=== PATIENT | female | born 1990 | race Caucasian/White ===

== ENCOUNTER 2019-06-04 17:38 | Emergency (ER) | payer OTHER ==
[2019-06-04 18:21] VITALS: BP 100/59
--- NOTE | 2019-06-04 18:28 | UC ---
Skin Complaint HPI - HPI Summary HPI Summary: 29-year-old female who has a history of abscesses. She has 2 abscesses under her right axilla. She had one last week but it opened and drained and has completely resolved. She denies any fever or chills. - History of Current Complaint Chief Complaint: UCSkin Time Seen by Provider: 06/04/19 18:20 Stated Complaint: RT ARMPIT SKIN CONCERN Hx Obtained From: Patient Hx Last Menstrual Period: 05/17/19 ?: No Onset/Duration: Gradual Onset Skin Exposure Onset/Duration: Days Ago Timing: Constant Onset Severity: Mild Current Severity: Moderate Pain Intensity: 8 Location: Other - Right axilla Character: Swelling, Redness, Painful Aggravating Factor(s): Touch Alleviating Factor(s): Nothing Associated Signs & Symptoms: Positive: Drainage, Tenderness - Allergy/Home Medications Allergies/Adverse Reactions: Allergies Allergy/AdvReac Type Severity Reaction Status Date / Time azithromycin AdvReac Palpitation Verified 06/04/19 18:20 s Home Medications: Home Medications Cbd Oil 1 drop PO BID 06/04/19 [History Confirmed 06/04/19] Kratom 2 teasp PO Q2HR 06/04/19 [History Confirmed 06/04/19] PMH/Surg Hx/FS Hx/Imm Hx Previously Healthy: Yes - Surgical History Surgical History: Yes Surgery Procedure, Year, and Place: - Family History Known Family History: Positive: None - Social History Alcohol Use: Rare Substance Use Type: None Smoking Status (MU): Heavy Every Day Tobacco Smoker Type: eCigarettes Amount Used/How Often: 3-4 per day Length of Time of Smoking/Using Tobacco: since age 14 Have You Smoked in the Last Year: Yes When Did the Patient Quit Smoking/Using Tobacco: VAPES Review of Systems All Other Systems Reviewed And Are Negative: Yes Skin: Positive: Other - Patient had 3 abscesses develop under right axilla one of them has opened and drained and is almost resolved the other 2 are quite swollen and painful. Is Patient Immunocompromised?: No Physical Exam Triage Information Reviewed: Yes Appearance: Well-Appearing, No Pain Distress, Well-Nourished Vital Signs: Initial Vital Signs Temp 99.7 F 06/04/19 18:13 Pulse 92 06/04/19 18:13 Resp 16 06/04/19 18:13 BP 100/59 06/04/19 18:13 Pulse Ox 99 06/04/19 18:13 Vital Signs Reviewed: Yes Neck: Positive: Supple, Nontender, No Lymphadenopathy Respiratory: Positive: Lungs clear, Normal breath sounds, No respiratory distress, No accessory muscle use Cardiovascular: Positive: RRR, No Murmur, Pulses Normal, Brisk Capillary Refill Musculoskeletal Exam: Normal Neurological Exam: Normal Psychological Exam: Normal Skin: Positive: Other - Patient has 2 abscesses in her right axilla which are red and tender on palpation, fluctuant. Course/Dx - Course Course Of Treatment: While I was preparing the lidocaine for injection into the abscesses, the patient refuses to have the procedure done to her level of anxiety. She states in the past she has been able to just allow them to develop and the drain spontaneously. I'm starting her on Bactrim DS one tab by mouth twice a day 10 days, follow-up in the emergency room for any fever, chills or worsening symptoms and follow-up with her primary care provider or [facility] if no improvement in 3 or 4 days. I tried to reassure the patient that everything would be anesthetized however she refused the procedure. - Diagnoses Provider Diagnosis: Abscess of left axilla Discharge ED - Sign-Out/Discharge Documenting (check all that apply): Patient Departure All imaging exams completed and their final reports reviewed: No Studies - Discharge Plan Condition: Fair Disposition: HOME Prescriptions: Sulfamethox/Trimethoprim DS* [Bactrim DS 800/160 TAB*] 1 tab PO BID 10 Days #20 tab Patient Education Materials: Abscess (ED) Referrals: No Primary Care Phys,NOPCP [Primary Care Provider] - [facility] [Outside] Additional Instructions: Warm moist compresses to the area 4-6 times a day for 20 minutes each time. Take the Bactrim twice a day with food. Definite follow-up in the emergency room if you develop fever or worsening symptoms. Follow-up with your primary care provider if no improvement in 3 or 4 days. - Billing Disposition and Condition Condition: FAIR Disposition: Home
[2019-06-04] MEDS ORDERED: Lidocaine 1% MPF ** 5 ML VIAL INJ ONE (18:31)
== END 2019-06-04 18:53 | disposition home or self-care (01) ==
LOC: UCCORT 17:38
DX: L02.411 Cutaneous abscess of right axilla (principal); Z53.20 Procedure and treatment not carried out because of patient's decision for unspecified reasons; Z88.2 Allergy status to sulfonamides; F17.290 Nicotine dependence, other tobacco product, uncomplicated
CPT/HCPCS: 99212; G0463

== ENCOUNTER 2019-07-17 15:44 | Emergency (ER) | payer OTHER ==
[2019-07-17 16:22] VITALS: BP 102/63
--- NOTE | 2019-07-17 17:15 | UC ---
Eye Complaint HPI - HPI Summary HPI Summary: 29-year-old female presents with onset of redness, tenderness, and mild swelling of the upper inner eyelid this morning. Denies any eye pain, eye redness, eye drainage, visual disturbances, photophobia, injury, or URI symptoms. - History of Current Complaint Chief Complaint: UCEye Stated Complaint: LEFT EYE COMPLAINT Time Seen by Provider: 07/17/19 16:36 Hx Obtained From: Patient Hx Last Menstrual Period: 07/16/19 Pain Intensity: 4 - Allergies/Home Medications Allergies/Adverse Reactions: Allergies Allergy/AdvReac Type Severity Reaction Status Date / Time azithromycin AdvReac Palpitation Verified 07/17/19 16:22 s PMH/Surg Hx/FS Hx/Imm Hx Previously Healthy: Yes Psychological History: Depression - Surgical History Surgical History: Yes Surgery Procedure, Year, and Place: - Family History Known Family History: Positive: None - Social History Occupation: Employed Full-time Lives: With Family Alcohol Use: Rare Substance Use Type: None Smoking Status (MU): Heavy Every Day Tobacco Smoker Type: eCigarettes Amount Used/How Often: 3-4 per day Length of Time of Smoking/Using Tobacco: since age 14 Have You Smoked in the Last Year: Yes When Did the Patient Quit Smoking/Using Tobacco: VAPES Review of Systems All Other Systems Reviewed And Are Negative: Yes Constitutional: Negative: Fever, Chills Eyes: Positive: Other - See HPI. Negative: Blurred Vision, Diplopia, Drainage, Eye Redness, Photophobia ENT: Negative: Sore Throat, Ear Ache, Nasal Discharge, Sinus Congestion, Sinus Pain/Tenderness Respiratory: Negative: Cough Cardiovascular: Positive: Negative Gastrointestinal: Positive: Negative Genitourinary: Positive: Negative Musculoskeletal: Positive: Negative Neurological: Positive: Negative Is Patient Immunocompromised?: No Physical Exam - Summary Physical Exam Summary: GENERAL APPEARANCE: Well developed, well nourished, alert and cooperative, and appears to be in no acute distress. EYES: External hordeolum noted to the left inner upper eyelid with mild erythema and edema. Conjunctiva clear. No drainage. PERRL, EOM intact. Vision is grossly intact. EARS: External auditory canals and tympanic membranes clear, hearing grossly intact. NOSE: No nasal discharge. THROAT: Pharynx normal No tonsilar inflammation, swelling, exudate, or lesions. Uvula midline. NECK: Neck supple, non-tender without lymphadenopathy. CARDIAC: Normal S1 and S2. No S3, S4 or murmurs. Rhythm is regular. There is no peripheral edema, cyanosis or pallor. Extremities are warm and well perfused. Capillary refill is less than 2 seconds. Peripheral pulses intact. LUNGS: Clear to auscultation without rales, rhonchi, wheezing or diminished breath sounds. ABDOMEN: Positive bowel sounds. Soft, nondistended, nontender. No guarding or rebound. No masses or hepatosplenomegally. MUSKULOSKELETAL: ROM intact to all extremities. No joint erythema or tenderness. Normal muscular development. Normal gait. SKIN: Skin normal color, texture and turgor with no lesions or eruptions. Triage Information Reviewed: Yes Vital Signs: Initial Vital Signs Temp 99.1 F 07/17/19 16:16 Pulse 82 07/17/19 16:16 Resp 16 07/17/19 16:16 BP 102/63 07/17/19 16:16 Pulse Ox 100 07/17/19 16:16 Vital Signs Reviewed: Yes Eye Complaint Course/Dx - Course Course Of Treatment: 29-year-old female presents with onset of redness, tenderness, and mild swelling of the upper inner eyelid this morning. Denies any eye pain, eye redness, eye drainage, visual disturbances, photophobia, injury, or URI symptoms. Afebrile. Vital signs stable. Patient exam was notable for external hordeolum noted to the left inner upper eyelid with mild erythema and edema. Conjunctiva clear. No drainage. PERRL, EOM intact. Vision is grossly intact. Remainder of exam was unremarkable. Recommending conservative treatment for a left upper eyelid stye including warm compresses and gentle massage as well as [id number] analgesics. She is to follow-up with ophthalmology in 5-7 days if symptoms are not improving. Anticipatory guidance and warning symptoms were reviewed with the patient. Verbalizes understanding and agrees with plan of care. - Differential Dx/Diagnosis Differential Diagnosis/HQI/PQRI: Conjunctivitis, Corneal Abrasion, Periorbital Cellulitis, Orbital Cellulitis, Other - Hordeolum Provider Diagnosis: Hordeolum externum of left upper eyelid Discharge ED - Sign-Out/Discharge Documenting (check all that apply): Patient Departure All imaging exams completed and their final reports reviewed: No Studies - Discharge Plan Condition: Stable Disposition: HOME Patient Education Materials: Stye (ED) Referrals: No Primary Care Phys,NOPCP [Primary Care Provider] - Pavan Chisholm MD [Medical Doctor] - 5 Days (If no improvement. Call for an appointment.) Additional Instructions: The redness, swelling, and tenderness of your upper eyelid is consistent with a stye which is a blockage of the gland of the eyelid that helps to lubricate the eye. These are not infectious will typically resolve on their own over several days. Using a hot moist compress to the eye for 15 minutes at least 4 times a day and then gently massage the eyelid after the compress to try to help improve the symptoms. Take acetaminophen (see Tylenol) or ibuprofen (Advil, Motrin) according to directions as needed for any pain. Follow-up with ophthalmology in 5-7 days if symptoms are not improving. You will need to call for an appointment. Seek immediate medical attention in the emergency room if you develop severe pain in the eye, worsening of swelling, visual disturbances, loss of vision, or any worsening of symptoms. - Billing Disposition and Condition Condition: STABLE Disposition: Home
== END 2019-07-17 17:34 | disposition home or self-care (01) ==
LOC: UCCORT 15:44
DX: H00.014 Hordeolum externum left upper eyelid (principal); F17.290 Nicotine dependence, other tobacco product, uncomplicated; Z88.1 Allergy status to other antibiotic agents
CPT/HCPCS: 99212; G0463